=== PATIENT | male | born 1985 | race African-American/Black ===

== ENCOUNTER 2018-06-16 08:03 | Emergency (ER) | payer MEDICAID ==
[~2018-06-16] VITALS: Ht 175.3 cm; Wt 80.0 kg
[2018-06-16 08:06] VITALS: BP 127/82
[2018-06-16] MEDS ORDERED: ACETAMINOPHEN 500MG TABLET PO ONE (09:30)
== END 2018-06-16 14:07 | disposition home or self-care (01) ==
LOC: ER 08:13
DX: S00.83XA Contusion of other part of head, initial encounter (principal); Y08.89XA Assault by other specified means, initial encounter; Y93.9 Activity, unspecified; Y92.9 Unspecified place or not applicable; F20.9 Schizophrenia, unspecified
CPT/HCPCS: 99284

== ENCOUNTER 2019-12-22 15:03 | Emergency (ER) | payer MEDICAID, OTHER ==
[~2019-12-22] VITALS: Ht 180.3 cm; Wt 79.5 kg
[2019-12-22] MEDS ORDERED: abilify (15:28)
[2019-12-22] MEDS ORDERED: seroquel (15:28)
[2019-12-22] MEDS ORDERED: ACETAMINOPHEN 325MG TABLET PO ONE (17:30)
[2019-12-22 18:58] VITALS: BP 120/78
== END 2019-12-22 18:58 | disposition home or self-care (01) ==
LOC: ER 15:03
DX: S09.8XXA Other specified injuries of head, initial encounter (principal); S43.491A Other sprain of right shoulder joint, initial encounter; Y08.89XA Assault by other specified means, initial encounter; Y93.89 Activity, other specified; Y92.89 Other specified places as the place of occurrence of the external cause; Y99.8 Other external cause status; F20.9 Schizophrenia, unspecified
CPT/HCPCS: 70486; 73030; 99285

== ENCOUNTER 2020-10-13 13:21 | Emergency (ER) | payer OTHER ==
[~2020-10-13] VITALS: Ht 170.2 cm; Wt 73.0 kg
[~2020-10-13 13:21] MED LIST: abilify; seroquel
[2020-10-13] MEDS ORDERED: KETOROLAC 30MG/ML VIAL IV STA (13:44)
[2020-10-13] MEDS ORDERED: SODIUM CHLORIDE 0.9% 1,000 ML IV ONE (13:45)
[2020-10-13 14:30] LABS: CHLORIDE 105 mEq/L (98-107)
[2020-10-13 14:33] LABS: BASOPHILS % 0.6 % (0.0-2.0); EOSINOPHILS % 0.6 % (0.0-5.0); HEMATOCRIT. 35.9 % (42.0-52.0); HEMOGLOBIN. 12.2 g/dL (14.0-18.0); LYMPHOCYTES % 27.5 % (20.0-50.0); MEAN CORPUSCULAR HEMOGLOBIN 29.5 pg (28.0-32.0); MEAN CORPUSCULAR VOLUME 86.9 fL (80.0-94.0); MEAN PLATELET VOLUME 8.4 fl (7.4-10.4); MONOCYTES % 9.1 % (2.0-8.0); NEUTROPHILS % 62.2 % (40.0-76.0); PLATELET 252 x1000/uL (130-400); RED BLOOD CELL COUNT 4.13 mill/uL (4.7-6.1); RED CELL DISTRIBUTION WIDTH 13.8 % (11.6-14.6)
[2020-10-13] MEDS ORDERED: IOHEXOL-300 100 ML BOTTLE ONE (15:32)
[2020-10-13] MEDS ORDERED: IBUP-2028 MT (15:56)
[2020-10-13 16:39] VITALS: BP 121/80
== END 2020-10-13 16:41 | disposition home or self-care (01) ==
LOC: ER 13:26
DX: R07.81 Pleurodynia (principal); Y08.89XA Assault by other specified means, initial encounter; Y93.89 Activity, other specified; Y92.89 Other specified places as the place of occurrence of the external cause; Y99.8 Other external cause status; F20.9 Schizophrenia, unspecified
CPT/HCPCS: 36415; 71045; 71260; 74177; 80053; 83690; 85025; 93005; 96361; 96374; 99285; J1885; J7030; Q9967; Z7610

== ENCOUNTER 2022-12-22 17:42 | Emergency (ER) | payer OTHER ==
[~2022-12-22] VITALS: Ht 177.8 cm; Wt 82.0 kg
[~2022-12-22 17:42] MED LIST changes: +IBUP-2028 MT
[2022-12-22 17:48] VITALS: BP 124/80; PULSE 90; RESP 15; TEMP 98; O2SAT 99
[2022-12-22] MEDS ORDERED: ACET-2708 MT (17:59)
== END 2022-12-22 18:09 ==
LOC: ER 17:42
DX: S00.12XA Contusion of left eyelid and periocular area, initial encounter (principal); F32.A Depression, unspecified; Y04.2XXA Assault by strike against or bumped into by another person, initial encounter; Y93.89 Activity, other specified; Y92.149 Unspecified place in prison as the place of occurrence of the external cause; Y99.8 Other external cause status
CPT/HCPCS: 99283